=== PATIENT | male | born 1970 | race Caucasian/White ===

== ENCOUNTER 2019-01-29 12:46 | Inpatient (IN) | payer OTHER ==
[~2019-01-29 12:46] MED LIST: ETOMIDATE 20 MG INJ; SUCCINYLCHOLINE CHLORIDE 100 MG/5 ML SYG IV
[2019-01-29] MEDS: LIDOCAINE 1% (MPF) 5 ML VIAL SC (13:00)
[2019-01-29] MEDS: SOD CHLORIDE 0.9% 2,000 ML IV (13:29)
[2019-01-29 13:42] LABS: AADO2 Arterial 51.1 mmHg (7.0-24.0); Arterial Base Excess -19.1 mmol/L (-3.0-3); Arterial Blood Gas Oxygen Sat 98.2 mmHG (95.0-98.0); Arterial COHb 0.4 % (0.0-3.0); Arterial Fraction of Oxyhgb 97.5 % (93.0-99.0); Arterial HCO3 6.7 mmol/L (22.0-26.0); Arterial MetHb 0.3 % (0.0-1.5); Arterial pCO2 17.7 mmhg (35-45); MODE NASAL CANNULA; Site Right Brachial
[2019-01-29 13:49] LABS: ABNORMAL IP MESSAGE 1; HEMOGLOBIN 13.1 g/dl (14.0-18.0); MEAN CORPUSCULAR HEMOGLOBIN 24.8 pg (29.0-33.0); MEAN CORPUSCULAR HGB CONC 34.5 g/dl (32.0-37.0); PLATELET COUNT 289 10^3/UL (140-415); POSITIVE DIFF @See below; RED BLOOD COUNT 5.28 10^6/ul (4.70-6.10); RED CELL DISTRIBUTION WIDTH 13.3 % (11.5-14.5)
[2019-01-29 13:55] LABS: ADD MAN DIFF? YES; PATH REVIEW? YES
[2019-01-29 14:11] LABS: ALANINE AMINOTRANSFERASE 34 IU/L (13-69); ALBUMIN 3.5 g/dl (3.3-4.9); ALBUMIN/GLOBULIN RATIO 0.85; ALKALINE PHOSPHATASE 190 IU/L (42-121); ANION GAP 24 (5-13); ASPARTATE AMINO TRANSFERASE 43 IU/L (15-46); BILIRUBIN,INDIRECT 0.3 mg/dl (0-1.1); BILIRUBIN,TOTAL 0.3 mg/dl (0.2-1.3); BLOOD UREA NITROGEN 34 mg/dl (7-20); CALCIUM 10.3 mg/dl (8.4-10.2); CHLORIDE 89 mmol/L (97-110); CREATININE 1.48 mg/dl (0.61-1.24); Estimated GFR 50 mL/min (>60); PHOSPHORUS 2.7 mg/dl (2.5-4.9); POTASSIUM 3.9 mmol/L (3.5-5.1); SODIUM 121 mmol/L (135-144); TOTAL PROTEIN 7.6 g/dl (6.1-8.1)
[2019-01-29 14:14] LABS: CARBON DIOXIDE 8 mmol/L (21-31); GLUCOSE 514 mg/dl (70-220)
[2019-01-29 14:20] LABS: BAND NEUTROPHILS #M 13.7 10^3/ul (0.0-0.6); BAND NEUTROPHILS % (M) 49 % (0-4); BURR CELLS 1+ (0-0); METAMYELOCYTES #M 0.2 10^3/ul (0.0-0.0); METAMYELOCYTES %M 1 % (0-0); MONOCYTE #M 1.6 10^3/ul (0.3-0.9); MONOCYTES % (M) 6 % (0-11); MYELOCYTES #M 0.8 10^3/ul (0.0-0.0); MYELOCYTES % (M) 3 % (0-0); PLATELET ESTIMATE NORMAL; POIKILOCYTOSIS 2+ (0-0); PROMYELOCYTES #M 0.8 10^3/ul (0-0); PROMYELOCYTES % (M) 3 % (0-0); REACTIVE LYMPHOCYTES #M 0.2 10^3/ul (0.0-0.0); REACTIVE LYMPHOCYTES% (M) 1 % (0-0); SEG NEUT #M 14.2 10^3/ul (1.6-7.5); SEGMENTED NEUTROPHILS (M) % 37 % (39-77); SMUDGE%M 1 % (0-0)
[2019-01-29] MEDS ORDERED: SOD CHLORIDE 0.9% 1,000 ML IV ×2 (14:59→19:27)
[2019-01-29] MEDS ORDERED: DEXTROSE 10%/0.45% NACL 1,000 ML IV ×2 (14:59→19:27)
[2019-01-29] MEDS ORDERED: D10/0.45% NACL + KCL 30 MEQ 1,000 ML IV ×2 (14:59→19:27)
[2019-01-29] MEDS ORDERED: NS + KCL 40 MEQ 1,000 ML IV ×2 (14:59→19:27)
[2019-01-29] MEDS ORDERED: DEXTROSE 50% 50 ML SYRINGE IV ×4 (15:00→19:30)
[2019-01-29] MEDS: SODIUM CHLORIDE 0.9% 1L BAG IV* (15:06)
[2019-01-29] MEDS ORDERED: morphine 4 MG/ML VIAL (15:10)
[2019-01-29] MEDS: CEFEPIME 2GM/50 ML (PMX) 50 ML IVPB (15:12)
[2019-01-29] MEDS: LACTATED RINGER'S 640 ML IV (15:12)
[2019-01-29] MEDS: morphine 4 MG/ML VIAL IV (15:14)
[2019-01-29] MEDS: VANCOMYCIN 1 GM (PMX) 250 ML IVPB (16:03)
[2019-01-29] MEDS: INSULIN REGULAR, HUMAN 100 UNIT in SOD CHLORIDE 0.9% 100 ML IV (16:08)
[2019-01-29] MEDS: NS + KCL 30 MEQ 1,000 ML IV ×2 (16:10→23:30)
[2019-01-29 16:27] LABS: ADD UMIC YES; UR ASCORBIC ACID NEGATIVE (NEGATIVE); UR BILIRUBIN (Dip) NEGATIVE (NEGATIVE); UR BLOOD (Dip) 3+ mg/dL (NEGATIVE); UR CLARITY SLIGHTLY CLOUDY (CLEAR); UR COLOR YELLOW (YELLOW); UR GLUCOSE (Dip) 3+ mg/dL (NEGATIVE); UR KETONES (Dip) 1+ mg/dL (NEGATIVE); UR LEUKOCYTE ESTERASE (Dip) NEGATIVE Leu/ul (NEGATIVE); UR NITRITE (Dip) NEGATIVE (NEGATIVE); UR RBC 0 /HPF (0-5); UR SPECIFIC GRAVITY (Dip) 1.011 (1.003-1.030); UR TOTAL PROTEIN (Dip) 1+ mg/dl (NEGATIVE); UR UROBILINOGEN (Dip) NEGATIVE (NEGATIVE); UR WBC 7 /HPF (0-5)
[2019-01-29] MEDS: D10/0.45% NACL + KCL 40 MEQ 1,000 ML IV (17:10)
[2019-01-29] MEDS ORDERED: ONDANSETRON 4 MG INJ IV ×2 (18:30→20:00)
[2019-01-29] MEDS ORDERED: ACETAMINOPHEN 325 MG TAB PO (18:30)
[2019-01-29] MEDS ORDERED: D10/0.45% NACL + KCL 40 MEQ 1,000 ML IV (19:27)
[2019-01-29] MEDS ORDERED: NS + KCL 30 MEQ 1,000 ML IV (19:27)
[2019-01-29] MEDS ORDERED: INSULIN REGULAR, HUMAN 100 UNIT in SOD CHLORIDE 0.9% 100 ML IV (19:30)
[2019-01-29] MEDS ORDERED: VANCOMYCIN IV PER PHARMACY XX (19:30)
[2019-01-29] MEDS: SOD CHLORIDE 0.9% 1,000 ML IV ×4 (19:38→23:30)
[2019-01-29] MEDS ORDERED: morphine 4 MG/ML VIAL IV (20:00)
[2019-01-29] MEDS: NPH, HUMAN INSULIN ISOPHANE 3ML VIAL SC (20:45)
[2019-01-29] MEDS: INSULIN ASPART [NOVOLOG] 3 ML PEN SC ×2 (20:45→23:30)
[2019-01-29 21:14] LABS: LACTIC ACID 2.5 mmol/L (0.5-2.0)
[2019-01-29] MEDS: ACCU-CHEK XX (21:15)
[2019-01-29 21:33] LABS: ANION GAP 7 (5-13); Estimated GFR > 60 mL/min (>60)
[2019-01-29 21:35] LABS: BLOOD UREA NITROGEN 25 mg/dl (7-20); CALCIUM 8.1 mg/dl (8.4-10.2); CARBON DIOXIDE 13 mmol/L (21-31); CHLORIDE 109 mmol/L (97-110); CREATININE 0.66 mg/dl (0.61-1.24); GLUCOSE 283 mg/dl (70-220); MAGNESIUM 1.4 mg/dl (1.7-2.5); PHOSPHORUS 1.1 mg/dl (2.5-4.9); POTASSIUM 5.9 mmol/L (3.5-5.1); SODIUM 129 mmol/L (135-144)
[2019-01-29 21:55] LABS: ACETONE NEGATIVE (NEGATIVE)
[2019-01-29 22:24] LABS: ANION GAP 8 (5-13); BLOOD UREA NITROGEN 27 mg/dl (7-20); CALCIUM 9.6 mg/dl (8.4-10.2); CARBON DIOXIDE 14 mmol/L (21-31); CHLORIDE 106 mmol/L (97-110); CREATININE 0.74 mg/dl (0.61-1.24); Estimated GFR > 60 mL/min (>60); GLUCOSE 244 mg/dl (70-220); MAGNESIUM 1.7 mg/dl (1.7-2.5); POTASSIUM 3.2 mmol/L (3.5-5.1); SODIUM 128 mmol/L (135-144)
[2019-01-29] MEDS: MAGNESIUM SULFATE 2 GM/50 ML 50 ML IVPB (23:13)
[2019-01-29] MEDS: MAGNESIUM SULFATE 1 GM/D5W 100 ML IVPB (23:14)
[2019-01-29] MEDS: PIPER-TAZO 3.375 GM IV (PMX) 100 ML IVPB (23:15)
[2019-01-30] MEDS ORDERED: PROPOFOL 100 ML IV
[2019-01-30] MEDS: PROPOFOL 100 ML IV ×4 (00:01→20:57)
[2019-01-30] MEDS ORDERED: DEXTROSE 50% 50 ML SYRINGE IV ×2 (00:30)
[2019-01-30 00:51] LABS: AADO2 Arterial 100.2 mmHg (7.0-24.0); AADO2 Arterial 190.5 mmHg (7.0-24.0); AADO2 Venous 112.5 mmHg; Allen Test ACCEPTAB; Arterial Base Excess -11.7 mmol/L (-3.0-3); Arterial Base Excess -13.7 mmol/L (-3.0-3); Arterial Blood Gas Oxygen Sat 96.4 mmHG (95.0-98.0); Arterial Blood Gas Oxygen Sat 99.6 mmHG (95.0-98.0); Arterial COHb 0.3 % (0.0-3.0); Arterial Fraction of Oxyhgb 95.7 % (93.0-99.0); Arterial Fraction of Oxyhgb 98.9 % (93.0-99.0); Arterial HCO3 13.7 mmol/L (22.0-26.0); Arterial HCO3 14.2 mmol/L (22.0-26.0); Arterial MetHb 0.4 % (0.0-1.5); Arterial pCO2 32.1 mmhg (35-45); MODE NASAL CANNULA; MODE VENT - AC; MetHgb Venous 0.4 %; Sample Type Blood venous; Site OTHER; Site Right Radial; Venous COHb 0.1 %; Venous Fraction OxyHgb 74.6 %; Venous Total Hemglobin 12.9 g/dl
[2019-01-30 01:18] LABS: LACTIC ACID 2.1 mmol/L (0.5-2.0)
[2019-01-30 01:19] LABS: TROPONIN-I < 0.012 ng/ml (0.000-0.120)
[2019-01-30] MEDS: ACCU-CHEK XX ×7 (01:29→06:32)
[2019-01-30] MEDS: INSULIN HUMAN REGULAR 100 UNIT in SOD CHLORIDE 0.9% 99 ML IV (01:53)
[2019-01-30] MEDS: SOD CHLORIDE 0.9% 1,000 ML IV ×4 (02:09→16:50)
[2019-01-30] MEDS: SOD CHLORIDE 0.9% 100 ML (02:29)
[2019-01-30] MEDS: IOHEXOL 300MG/ML 150 ML BTL (02:29)
[2019-01-30] MEDS: PIPER-TAZO 3.375 GM IV (PMX) 100 ML IVPB ×3 (03:23→19:32)
[2019-01-30] MEDS: INSULIN ASPART [NOVOLOG] 3 ML PEN SC ×6 (03:30→23:51)
[2019-01-30 03:31] LABS: LACTIC ACID 2.2 mmol/L (0.5-2.0)
[2019-01-30] MEDS: NORepinephrine 8MG/250 ML (PMX 250 ML IV ×2 (03:36→22:27)
[2019-01-30] MEDS: VANCOMYCIN 1 GM 250 ML IVPB ×2 (04:10→16:50)
[2019-01-30] MEDS: NPH, HUMAN INSULIN ISOPHANE 3ML VIAL SC ×2 (05:17→17:18)
[2019-01-30 05:24] LABS: ABNORMAL IP MESSAGE 1; HEMATOCRIT 30.3 % (42.0-52.0); HEMOGLOBIN 10.5 g/dl (14.0-18.0); MEAN CORPUSCULAR HEMOGLOBIN 24.9 pg (29.0-33.0); MEAN CORPUSCULAR HGB CONC 34.7 g/dl (32.0-37.0); MEAN PLATELET VOLUME 10.5 fl (7.4-10.4); PLATELET COUNT 189 10^3/UL (140-415); POSITIVE DIFF @See below; RED BLOOD COUNT 4.21 10^6/ul (4.70-6.10); RED CELL DISTRIBUTION WIDTH 13.9 % (11.5-14.5)
[2019-01-30 05:24] LABS: WHITE BLOOD COUNT 16.2 10^3/ul (4.8-10.8)
[2019-01-30 05:29] LABS: ADD MAN DIFF? YES
[2019-01-30] MEDS: ACETAMINOPHEN 325 MG TAB PO (05:34)
[2019-01-30 05:51] LABS: ALANINE AMINOTRANSFERASE 37 IU/L (13-69); ALBUMIN 2.1 g/dl (3.3-4.9); ALBUMIN/GLOBULIN RATIO 0.67; ALKALINE PHOSPHATASE 130 IU/L (42-121); ANION GAP 8 (5-13); ASPARTATE AMINO TRANSFERASE 58 IU/L (15-46); BILIRUBIN,INDIRECT 0.2 mg/dl (0-1.1); BILIRUBIN,TOTAL 0.2 mg/dl (0.2-1.3); BLOOD UREA NITROGEN 22 mg/dl (7-20); CALCIUM 9.7 mg/dl (8.4-10.2); CARBON DIOXIDE 16 mmol/L (21-31); CHLORIDE 111 mmol/L (97-110); CREATININE 0.76 mg/dl (0.61-1.24); Estimated GFR > 60 mL/min (>60); GLUCOSE 162 mg/dl (70-220); MAGNESIUM 1.7 mg/dl (1.7-2.5); PHOSPHORUS 0.5 mg/dl (2.5-4.9); POTASSIUM 3.1 mmol/L (3.5-5.1); SODIUM 135 mmol/L (135-144); TOTAL PROTEIN 5.2 g/dl (6.1-8.1)
[2019-01-30 05:59] LABS: TROPONIN-I 0.017 ng/ml (0.000-0.120)
[2019-01-30] MEDS ORDERED: LEVETIRACETAM 1000 MG (PMX) 100 ML IVPB (07:03)
[2019-01-30] MEDS ORDERED: LORAZEPAM 2 MG INJ IV (07:30)
[2019-01-30 09:02] LABS: AADO2 Arterial 122.4 mmHg (7.0-24.0); Allen Test ACCEPTAB; Arterial Base Excess -9.8 mmol/L (-3.0-3); Arterial Blood Gas Oxygen Sat 98.9 mmHG (95.0-98.0); Arterial COHb 0.3 % (0.0-3.0); Arterial Fraction of Oxyhgb 98.3 % (93.0-99.0); Arterial HCO3 13.3 mmol/L (22.0-26.0); Arterial MetHb 0.3 % (0.0-1.5); Arterial pCO2 22.7 mmhg (35-45); MODE VENT - AC; Site Right Radial
[2019-01-30 10:09] LABS: BAND NEUTROPHILS #M 7.7 10^3/ul (0.0-0.6); BAND NEUTROPHILS % (M) 48 % (0-4); BURR CELLS 2+ (0-0); LYMPHOCYTES #M 0.6 10^3/ul (0.8-2.9); LYMPHOCYTES % (M) 4 % (15-51); METAMYELOCYTES #M 1.6 10^3/ul (0.0-0.0); METAMYELOCYTES %M 10 % (0-0); MONOCYTE #M 2.1 10^3/ul (0.3-0.9); MONOCYTES % (M) 13 % (0-11); MYELOCYTES #M 0.1 10^3/ul (0.0-0.0); MYELOCYTES % (M) 1 % (0-0); PLATELET ESTIMATE NORMAL; PLATELET MORPHOLOGY COMMENT @See below; POIKILOCYTOSIS 2+ (0-0); SEG NEUT #M 5.3 10^3/ul (1.6-7.5); SEGMENTED NEUTROPHILS (M) % 25 % (39-77); SMUDGE%M 33 % (0-0); TOXIC GRANULATION 1+ (0-0)
[2019-01-30] MEDS: ACETAMINOPHEN 650MG/20.3ML CUP NGT (10:13)
[2019-01-30] MEDS: POTASSIUM CHLORIDE 50 ML IVPB ×3 (10:14→13:48)
[2019-01-30 11:09] LABS: AMPHETAMINE/METHAMPHETAMINE Negative (NEGATIVE); BARBITURATES Negative (NEGATIVE); BENZODIAZEPINES Negative (NEGATIVE); CANNABINOIDS Negative (NEGATIVE); COCAINE Negative (NEGATIVE)
[2019-01-30 11:14] LABS: OPIATES Positive (NEGATIVE)
[2019-01-30] MEDS: FAMOTIDINE 20 MG INJ IV ×2 (13:48→20:56)
[2019-01-30] MEDS: DAKINS 0.0125%(1/40) 473 ML SOLUTION TP (22:20)
[2019-01-30] MEDS: COLLAGENASE 5 GM (UD JAR) TOP (22:20)
[2019-01-31] MEDS: SOD CHLORIDE 0.9% 1,000 ML IV ×4 (00:47→20:36)
[2019-01-31 03:23] LABS: ADD MAN DIFF? NO
[2019-01-31 03:25] LABS: ABNORMAL IP MESSAGE 1; BASOPHIL # 0.1 10^3/ul (0.0-0.1); BASOPHILS % 0.6 % (0.0-2.0); EOSINOPHILS % 0.1 % (0.0-7.0); HEMATOCRIT 30.6 % (42.0-52.0); HEMOGLOBIN 10.8 g/dl (14.0-18.0); LYMPHOCYTES # 0.9 10^3/ul (0.8-2.9); MEAN CORPUSCULAR HEMOGLOBIN 24.9 pg (29.0-33.0); MEAN CORPUSCULAR HGB CONC 35.3 g/dl (32.0-37.0); MEAN CORPUSCULAR VOLUME 70.7 fl (82.0-101.0); MEAN PLATELET VOLUME 10.5 fl (7.4-10.4); MONOCYTE # 1.7 10^3/ul (0.3-0.9); NEUTROPHIL # 15.7 10^3/ul (1.6-7.5); NEUTROPHILS % 83.4 % (39.0-77.0); PLATELET COUNT 183 10^3/UL (140-415); POSITIVE DIFF @See below; RED BLOOD COUNT 4.33 10^6/ul (4.70-6.10); RED CELL DISTRIBUTION WIDTH 14.4 % (11.5-14.5)
[2019-01-31 03:25] LABS: WHITE BLOOD COUNT 18.8 10^3/ul (4.8-10.8)
[2019-01-31 03:48] LABS: ANION GAP 10 (5-13); BLOOD UREA NITROGEN 18 mg/dl (7-20); CARBON DIOXIDE 15 mmol/L (21-31); CHLORIDE 125 mmol/L (97-110); CREATININE 0.85 mg/dl (0.61-1.24); Estimated GFR > 60 mL/min (>60); GLUCOSE 306 mg/dl (70-220); SODIUM 150 mmol/L (135-144)
[2019-01-31 03:53] LABS: VANCOMYCIN,TROUGH 16.6 ug/ml (10.0-20.0)
[2019-01-31 03:56] LABS: POTASSIUM 2.1 mmol/L (3.5-5.1)
[2019-01-31] MEDS: INSULIN ASPART [NOVOLOG] 3 ML PEN SC ×6 (04:04→23:54)
[2019-01-31] MEDS: PIPER-TAZO 3.375 GM IV (PMX) 100 ML IVPB ×3 (04:05→19:05)
[2019-01-31] MEDS: PROPOFOL 100 ML IV ×4 (04:11→20:35)
[2019-01-31] MEDS: POTASSIUM CHLORIDE 50 ML IVPB (04:19)
[2019-01-31] MEDS: POTASSIUM CHLORIDE 20 MEQ POWDER FOR ORAL SOLN NGT ×4 (04:49→11:32)
[2019-01-31] MEDS: VANCOMYCIN 1 GM 250 ML IVPB ×2 (04:54→15:34)
[2019-01-31] MEDS: NPH, HUMAN INSULIN ISOPHANE 3ML VIAL SC ×2 (06:09→19:04)
[2019-01-31] MEDS: ACETAMINOPHEN 650MG/20.3ML CUP NGT (08:14)
[2019-01-31] MEDS: COLLAGENASE 5 GM (UD JAR) TOP ×2 (08:14→20:40)
[2019-01-31] MEDS: FAMOTIDINE 20 MG INJ IV ×2 (08:14→20:36)
[2019-01-31] MEDS: DAKINS 0.0125%(1/40) 473 ML SOLUTION TP ×2 (08:15→20:36)
[2019-01-31] MEDS: ENOXAPARIN 40 MG/0.4 ML SYG SC (08:21)
[2019-01-31 08:54] LABS: AADO2 Arterial 73.2 mmHg (7.0-24.0); Allen Test ACCEPTAB; Arterial Base Excess -9.7 mmol/L (-3.0-3); Arterial Blood Gas Oxygen Sat 97.8 mmHG (95.0-98.0); Arterial COHb 0.3 % (0.0-3.0); Arterial HCO3 14.2 mmol/L (22.0-26.0); Arterial MetHb 0.5 % (0.0-1.5); Arterial pCO2 24.9 mmhg (35-45); MODE VENT - AC; Site Right Radial
[2019-01-31] MEDS: IOHEXOL 300MG/ML 150 ML BTL (10:01)
[2019-01-31] MEDS: SOD CHLORIDE 0.9% 100 ML (10:01)
[2019-01-31] MEDS ORDERED: NPH, HUMAN INSULIN ISOPHANE 3ML VIAL SC (17:30)
[2019-02-01] MEDS: PROPOFOL 100 ML IV ×4 (03:22→22:47)
[2019-02-01] MEDS: PIPER-TAZO 3.375 GM IV (PMX) 100 ML IVPB (03:47)
[2019-02-01] MEDS: INSULIN ASPART [NOVOLOG] 3 ML PEN SC ×2 (03:52→08:49)
[2019-02-01] MEDS: VANCOMYCIN 1 GM 250 ML IVPB (04:58)
[2019-02-01 05:26] LABS: ADD MAN DIFF? NO
[2019-02-01 05:31] LABS: WHITE BLOOD COUNT 17.4 10^3/ul (4.8-10.8)
[2019-02-01 05:31] LABS: ABNORMAL IP MESSAGE 1; BASOPHILS % 0.2 % (0.0-2.0); EOSINOPHILS % 0.2 % (0.0-7.0); HEMATOCRIT 26.4 % (42.0-52.0); HEMOGLOBIN 9.2 g/dl (14.0-18.0); LYMPHOCYTES # 2.1 10^3/ul (0.8-2.9); MEAN CORPUSCULAR HEMOGLOBIN 24.8 pg (29.0-33.0); MEAN CORPUSCULAR HGB CONC 34.8 g/dl (32.0-37.0); MEAN CORPUSCULAR VOLUME 71.2 fl (82.0-101.0); MEAN PLATELET VOLUME 11.4 fl (7.4-10.4); MONOCYTE # 1.6 10^3/ul (0.3-0.9); MONOCYTES % 9.2 % (0.0-11.0); NEUTROPHIL # 13.1 10^3/ul (1.6-7.5); NEUTROPHILS % 75.5 % (39.0-77.0); PLATELET COUNT 203 10^3/UL (140-415); POSITIVE DIFF @See below; RED BLOOD COUNT 3.71 10^6/ul (4.70-6.10); RED CELL DISTRIBUTION WIDTH 14.9 % (11.5-14.5)
[2019-02-01 06:08] LABS: ANION GAP 6 (5-13); BLOOD UREA NITROGEN 24 mg/dl (7-20); CALCIUM 9.6 mg/dl (8.4-10.2); CARBON DIOXIDE 18 mmol/L (21-31); CHLORIDE 129 mmol/L (97-110); CREATININE 0.79 mg/dl (0.61-1.24); Estimated GFR > 60 mL/min (>60); GLUCOSE 289 mg/dl (70-220); POTASSIUM 3.7 mmol/L (3.5-5.1); SODIUM 153 mmol/L (135-144)
[2019-02-01 07:35] LABS: ANISOCYTOSIS 1+ (0-0); BAND NEUTROPHILS #M 8.8 10^3/ul (0.0-0.6); BAND NEUTROPHILS % (M) 51 % (0-4); BURR CELLS 2+ (0-0); LYMPHOCYTES #M 0.8 10^3/ul (0.8-2.9); LYMPHOCYTES % (M) 5 % (15-51); METAMYELOCYTES #M 0.1 10^3/ul (0.0-0.0); METAMYELOCYTES %M 1 % (0-0); MICROCYTOSIS 1+ (0-0); MONOCYTES % (M) 12 % (0-11); MYELOCYTES #M 0.1 10^3/ul (0.0-0.0); MYELOCYTES % (M) 1 % (0-0); PLATELET ESTIMATE NORMAL; POIKILOCYTOSIS 2+ (0-0); PROMYELOCYTES #M 0.1 10^3/ul (0-0); PROMYELOCYTES % (M) 1 % (0-0); SEG NEUT #M 6.6 10^3/ul (1.6-7.5); SEGMENTED NEUTROPHILS (M) % 29 % (39-77); SMUDGE%M 8 % (0-0)
[2019-02-01 07:38] LABS: TOXIC GRANULATION 1+ (0-0)
[2019-02-01] MEDS: FAMOTIDINE 20 MG INJ IV ×2 (08:41→21:00)
[2019-02-01] MEDS: ENOXAPARIN 40 MG/0.4 ML SYG SC (08:46)
[2019-02-01] MEDS: NPH, HUMAN INSULIN ISOPHANE 3ML VIAL SC (08:54)
[2019-02-01] MEDS: SOD CHLORIDE 0.9% 1,000 ML IV ×2 (09:24→22:54)
[2019-02-01] MEDS: COLLAGENASE 5 GM (UD JAR) TOP ×2 (10:11→21:02)
[2019-02-01] MEDS: FENTAnyl (DRIP) 1000 mcg/100mL 100 ML IV ×2 (10:32→21:17)
[2019-02-01] MEDS: CEFTRIAXONE 2 GM/50 ML (PMX) 50 ML IVPB (11:29)
[2019-02-01] MEDS: DAKINS 0.0125%(1/40) 473 ML SOLUTION TP ×2 (11:29→21:02)
[2019-02-01] MEDS: INSULIN HUMAN REGULAR 100 UNIT in SOD CHLORIDE 0.9% 99 ML IV (11:35)
[2019-02-01] MEDS: ACCU-CHEK XX ×13 (11:39→23:00)
[2019-02-01] MEDS ORDERED: PHENYLephrine 20MG IN 250 ML 250 ML (11:58)
[2019-02-01] MEDS ORDERED: PHENYLephrine 20MG IN 250 ML 250 ML IV (12:00)
[2019-02-01] MEDS ORDERED: MIDAZOLAM 1 MG/ML 2 ML INJ IV (12:00)
[2019-02-01] MEDS: MIDAZOLAM 1 MG/ML 2 ML INJ IV (12:07)
[2019-02-01] MEDS: ACETAMINOPHEN 650MG/20.3ML CUP NGT (21:30)
[2019-02-02] MEDS: ACCU-CHEK XX ×24 (01:00→23:00)
[2019-02-02] MEDS: PROPOFOL 100 ML IV ×3 (03:24→16:35)
[2019-02-02 05:15] LABS: HEMATOCRIT 24.7 % (42.0-52.0); HEMOGLOBIN 8.7 g/dl (14.0-18.0); MEAN CORPUSCULAR HEMOGLOBIN 24.7 pg (29.0-33.0); MEAN CORPUSCULAR HGB CONC 35.2 g/dl (32.0-37.0); MEAN CORPUSCULAR VOLUME 70.2 fl (82.0-101.0); MEAN PLATELET VOLUME 10.8 fl (7.4-10.4); PLATELET COUNT 223 10^3/UL (140-415); POSITIVE DIFF @See below; RED BLOOD COUNT 3.52 10^6/ul (4.70-6.10); RED CELL DISTRIBUTION WIDTH 14.9 % (11.5-14.5)
[2019-02-02 05:15] LABS: WHITE BLOOD COUNT 12.2 10^3/ul (4.8-10.8)
[2019-02-02 05:21] LABS: ADD MAN DIFF? YES
[2019-02-02 06:00] LABS: ANION GAP 4 (5-13); BLOOD UREA NITROGEN 23 mg/dl (7-20); CALCIUM 8.7 mg/dl (8.4-10.2); CARBON DIOXIDE 23 mmol/L (21-31); CHLORIDE 130 mmol/L (97-110); CREATININE 0.71 mg/dl (0.61-1.24); Estimated GFR > 60 mL/min (>60); GLUCOSE 105 mg/dl (70-220); SODIUM 157 mmol/L (135-144)
[2019-02-02 06:10] LABS: POTASSIUM 2.8 mmol/L (3.5-5.1)
[2019-02-02] MEDS: FENTAnyl (DRIP) 1000 mcg/100mL 100 ML IV ×2 (07:26→20:13)
[2019-02-02] MEDS: DAKINS 0.0125%(1/40) 473 ML SOLUTION TP ×2 (08:56→21:24)
[2019-02-02] MEDS: FAMOTIDINE 20 MG INJ IV ×2 (08:56→21:17)
[2019-02-02] MEDS: COLLAGENASE 5 GM (UD JAR) TOP ×2 (08:56→21:17)
[2019-02-02] MEDS: POTASSIUM CHLORIDE (SR) 20 MEQ TAB PO ×4 (08:57→16:10)
[2019-02-02] MEDS: ENOXAPARIN 40 MG/0.4 ML SYG SC (08:59)
[2019-02-02] MEDS ORDERED: DEXMEDETOMIDINE IN DEXTROSE 5% 50 ML IV (10:00)
[2019-02-02] MEDS: DEXMEDETOMIDINE IN DEXTROSE 5% 50 ML IV ×4 (10:26→23:32)
[2019-02-02 10:36] LABS: ANISOCYTOSIS 1+ (0-0); BAND NEUTROPHILS #M 5.9 10^3/ul (0.0-0.6); BAND NEUTROPHILS % (M) 49 % (0-4); BURR CELLS 1+ (0-0); EOSINOPHILS % (M) 2 % (0-7); GIANT THROMBO% (M) 1 % (0-0); LYMPHOCYTES #M 1.4 10^3/ul (0.8-2.9); LYMPHOCYTES % (M) 12 % (15-51); MONOCYTE #M 0.7 10^3/ul (0.3-0.9); MONOCYTES % (M) 6 % (0-11); PLATELET ESTIMATE NORMAL; POIKILOCYTOSIS 1+ (0-0); REACTIVE LYMPHOCYTES #M 0.2 10^3/ul (0.0-0.0); REACTIVE LYMPHOCYTES% (M) 2 % (0-0); SEG NEUT #M 4.3 10^3/ul (1.6-7.5); SEGMENTED NEUTROPHILS (M) % 29 % (39-77); SMUDGE%M 15 % (0-0)
[2019-02-02] MEDS: CEFTRIAXONE 2 GM/50 ML (PMX) 50 ML IVPB (10:46)
[2019-02-02] MEDS ORDERED: POTASSIUM CHLORIDE 50 ML IVPB (11:30)
[2019-02-02 12:35] LABS: POTASSIUM 2.4 mmol/L (3.5-5.1)
[2019-02-02] MEDS: POTASSIUM CHLORIDE 40 MEQ in DEXTROSE 5% 1,000 ML IV ×2 (12:40→22:46)
[2019-02-02] MEDS ORDERED: POTASSIUM CHLORIDE 0 ML IVPB (13:26)
[2019-02-02] MEDS: POTASSIUM CHLORIDE 50 ML IVPB ×2 (13:35→16:06)
[2019-02-02] MEDS: MUPIROCIN 2% 22 GM OINT TOP ×2 (21:44→21:54)
[2019-02-02] MEDS: INSULIN HUMAN REGULAR 100 UNIT in SOD CHLORIDE 0.9% 99 ML IV (21:55)
[2019-02-02] MEDS: ACETAMINOPHEN 650MG/20.3ML CUP NGT (21:56)
[2019-02-03] MEDS: ACCU-CHEK XX ×13 (01:00→12:09)
[2019-02-03] MEDS: PROPOFOL 100 ML IV ×2 (02:22→07:19)
[2019-02-03] MEDS: DEXMEDETOMIDINE IN DEXTROSE 5% 50 ML IV ×4 (03:06→13:19)
[2019-02-03 05:02] LABS: AADO2 Arterial 39.7 mmHg (7.0-24.0); Allen Test ACCEPTAB; Arterial Base Excess -1.8 mmol/L (-3.0-3); Arterial Blood Gas Oxygen Sat 98.5 mmHG (95.0-98.0); Arterial COHb 0.3 % (0.0-3.0); Arterial Fraction of Oxyhgb 97.8 % (93.0-99.0); Arterial HCO3 19.7 mmol/L (22.0-26.0); Arterial MetHb 0.4 % (0.0-1.5); Arterial pCO2 21.7 mmhg (35-45); MODE VENT - AC; Site Right Radial
[2019-02-03 06:06] LABS: HEMATOCRIT 23.5 % (42.0-52.0); MEAN CORPUSCULAR HEMOGLOBIN 24.8 pg (29.0-33.0); MEAN CORPUSCULAR VOLUME 72.8 fl (82.0-101.0); MEAN PLATELET VOLUME 11.6 fl (7.4-10.4); NUCLEATED RED BLOOD CELLS% 0.3 /100WBC (0.0-0.0); PLATELET COUNT 208 10^3/UL (140-415); POSITIVE DIFF @See below; RED BLOOD COUNT 3.23 10^6/ul (4.70-6.10); RED CELL DISTRIBUTION WIDTH 15.3 % (11.5-14.5)
[2019-02-03 06:06] LABS: WHITE BLOOD COUNT 10.6 10^3/ul (4.8-10.8)
[2019-02-03 06:23] LABS: ADD MAN DIFF? YES
[2019-02-03 06:35] LABS: ANION GAP 2 (5-13); BLOOD UREA NITROGEN 18 mg/dl (7-20); CALCIUM 8.1 mg/dl (8.4-10.2); CARBON DIOXIDE 21 mmol/L (21-31); CHLORIDE 125 mmol/L (97-110); Estimated GFR > 60 mL/min (>60); GLUCOSE 148 mg/dl (70-220); MAGNESIUM 1.8 mg/dl (1.7-2.5); PHOSPHORUS 0.6 mg/dl (2.5-4.9); SODIUM 148 mmol/L (135-144)
[2019-02-03] MEDS: DAKINS 0.0125%(1/40) 473 ML SOLUTION TP ×2 (09:00→20:37)
[2019-02-03 09:15] LABS: ANISOCYTOSIS 1+ (0-0); BAND NEUTROPHILS #M 4.1 10^3/ul (0.0-0.6); BAND NEUTROPHILS % (M) 39 % (0-4); BURR CELLS 1+ (0-0); ERYTHROBLAST% (NRBC) (M) 1 % (0-0); GIANT THROMBO% (M) 1 % (0-0); LYMPHOCYTES #M 1.8 10^3/ul (0.8-2.9); LYMPHOCYTES % (M) 17 % (15-51); METAMYELOCYTES #M 0.2 10^3/ul (0.0-0.0); METAMYELOCYTES %M 2 % (0-0); MICROCYTOSIS 1+ (0-0); MONOCYTE #M 0.4 10^3/ul (0.3-0.9); MONOCYTES % (M) 4 % (0-11); PLATELET ESTIMATE NORMAL; SEG NEUT #M 4.5 10^3/ul (1.6-7.5); SEGMENTED NEUTROPHILS (M) % 38 % (39-77); SMUDGE%M 104 % (0-0); TOXIC GRANULATION 1+ (0-0)
[2019-02-03] MEDS: COLLAGENASE 5 GM (UD JAR) TOP ×2 (09:30→20:36)
[2019-02-03] MEDS: DOCUSATE SODIUM 10 MG/ML (10ML CUP) GTB (09:30)
[2019-02-03] MEDS: ASCORBIC ACID 500 MG TAB NGT (09:31)
[2019-02-03] MEDS: ZINC SULFATE 220 MG CAP NGT (09:31)
[2019-02-03] MEDS: ENOXAPARIN 40 MG/0.4 ML SYG SC (09:38)
[2019-02-03] MEDS: FAMOTIDINE 20 MG INJ IV ×2 (09:38→20:44)
[2019-02-03 10:13] LABS: AADO2 Arterial 81.3 mmHg (7.0-24.0); Allen Test ACCEPTAB; Arterial Base Excess 0.4 mmol/L (-3.0-3); Arterial HCO3 21.3 mmol/L (22.0-26.0); Arterial pCO2 25.7 mmhg (35-45); Blood Gas PS 10; MODE VENT - CPAP; Site Right Radial
[2019-02-03] MEDS: SOD CHLORIDE IVPB (10:53)
[2019-02-03] MEDS: POTASSIUM PHOSPHATE IVPB (10:53)
[2019-02-03] MEDS: CEFTRIAXONE 2 GM/50 ML (PMX) 50 ML IVPB (13:19)
[2019-02-03] MEDS ORDERED: DEXTROSE 50% 50 ML SYRINGE IV ×2 (13:30)
[2019-02-03] MEDS ORDERED: GLUCAGON 1 MG INJ IM (13:30)
[2019-02-03] MEDS ORDERED: GLUCOSE GEL 15 GRAM TUBE BUCCAL (13:30)
[2019-02-03] MEDS ORDERED: GLUCOSE GEL 15 GRAM TUBE PO ×2 (13:30)
[2019-02-03] MEDS: INSULIN GLARGINE [LANTus] (100 UNITS/ML) SYG SC ×2 (14:17→20:23)
[2019-02-03] MEDS: ALBUTEROL/IPRATROPIUM (NEB) 3 ML AMP HHN ×2 (15:10→20:06)
[2019-02-03 15:19] LABS: PHOSPHORUS 2.7 mg/dl (2.5-4.9)
[2019-02-03 15:19] LABS: ANION GAP 6 (5-13); BLOOD UREA NITROGEN 16 mg/dl (7-20); CALCIUM 8.6 mg/dl (8.4-10.2); CARBON DIOXIDE 23 mmol/L (21-31); CHLORIDE 122 mmol/L (97-110); CREATININE 0.71 mg/dl (0.61-1.24); Estimated GFR > 60 mL/min (>60); GLUCOSE 141 mg/dl (70-220); POTASSIUM 3.5 mmol/L (3.5-5.1); SODIUM 151 mmol/L (135-144)
[2019-02-03] MEDS: INSULIN ASPART [NOVOLOG] 3 ML PEN SC (17:35)
[2019-02-03] MEDS ORDERED: INSULIN GLARGINE [LANTus] (100 UNITS/ML) SYG SC (20:00)
[2019-02-03] MEDS: MUPIROCIN 2% 22 GM OINT TOP (20:36)
[2019-02-03] MEDS: ACETAMINOPHEN 650MG/20.3ML CUP NGT (20:45)
[2019-02-04] MEDS: ALBUTEROL/IPRATROPIUM (NEB) 3 ML AMP HHN ×3 (02:06→19:48)
[2019-02-04] MEDS: INSULIN ASPART [NOVOLOG] 3 ML PEN SC ×5 (07:35→18:48)
[2019-02-04] MEDS: DOCUSATE SODIUM 10 MG/ML (10ML CUP) GTB (08:06)
[2019-02-04] MEDS: ZINC SULFATE 220 MG CAP NGT (09:43)
[2019-02-04] MEDS: ASCORBIC ACID 500 MG TAB NGT (09:43)
[2019-02-04] MEDS: COLLAGENASE 5 GM (UD JAR) TOP (09:44)
[2019-02-04] MEDS: MUPIROCIN 2% 22 GM OINT TOP (09:44)
[2019-02-04] MEDS: DAKINS 0.0125%(1/40) 473 ML SOLUTION TP (09:44)
[2019-02-04] MEDS: INSULIN GLARGINE [LANTus] (100 UNITS/ML) SYG SC (09:45)
[2019-02-04] MEDS: ENOXAPARIN 40 MG/0.4 ML SYG SC (09:46)
[2019-02-04] MEDS: FAMOTIDINE 20 MG INJ IV (11:17)
[2019-02-04] MEDS: CEFTRIAXONE 2 GM/50 ML (PMX) 50 ML IVPB (12:28)
[2019-02-05] MEDS: MUPIROCIN 2% 22 GM OINT TOP ×3 (00:16→20:47)
[2019-02-05] MEDS: COLLAGENASE 5 GM (UD JAR) TOP ×3 (00:16→20:47)
[2019-02-05] MEDS: FAMOTIDINE 20 MG INJ IV ×2 (00:16→09:36)
[2019-02-05] MEDS: DAKINS 0.0125%(1/40) 473 ML SOLUTION TP ×3 (00:16→20:47)
[2019-02-05] MEDS: INSULIN GLARGINE [LANTus] (100 UNITS/ML) SYG SC ×3 (00:18→20:00)
[2019-02-05] MEDS: INSULIN ASPART [NOVOLOG] 3 ML PEN SC ×8 (00:18→20:46)
[2019-02-05] MEDS: ALBUTEROL/IPRATROPIUM (NEB) 3 ML AMP HHN ×4 (01:08→19:50)
[2019-02-05] MEDS: ACCU-CHEK XX (03:27)
[2019-02-05] MEDS: ZINC SULFATE 220 MG CAP NGT (09:36)
[2019-02-05] MEDS: DOCUSATE SODIUM 10 MG/ML (10ML CUP) GTB (09:36)
[2019-02-05] MEDS: ASCORBIC ACID 500 MG TAB NGT (09:37)
[2019-02-05] MEDS: ENOXAPARIN 40 MG/0.4 ML SYG SC (09:50)
[2019-02-05] MEDS: CEFTRIAXONE 2 GM/50 ML (PMX) 50 ML IVPB (11:37)
[2019-02-05 12:28] LABS: C-REACTIVE PROTEIN 5.5 mg/dl (0.0-0.9)
[2019-02-05 13:45] LABS: ERYTHROCYTE SEDIMENTATION RATE 102 mm/Hr (0-20)
[2019-02-05] MEDS: FAMOTIDINE 20 MG TAB NGT (20:47)
[2019-02-06] MEDS: ACCU-CHEK XX (00:43)
[2019-02-06] MEDS: ALBUTEROL/IPRATROPIUM (NEB) 3 ML AMP HHN ×4 (01:34→19:54)
[2019-02-06] MEDS: ASCORBIC ACID 500 MG TAB NGT (08:43)
[2019-02-06] MEDS: ZINC SULFATE 220 MG CAP NGT (08:43)
[2019-02-06] MEDS: ENOXAPARIN 40 MG/0.4 ML SYG SC (08:43)
[2019-02-06] MEDS: DOCUSATE SODIUM 10 MG/ML (10ML CUP) GTB (08:43)
[2019-02-06] MEDS: FAMOTIDINE 20 MG TAB NGT ×2 (08:43→21:32)
[2019-02-06] MEDS: COLLAGENASE 5 GM (UD JAR) TOP ×2 (08:44→21:33)
[2019-02-06] MEDS: INSULIN ASPART [NOVOLOG] 3 ML PEN SC ×7 (08:44→21:41)
[2019-02-06] MEDS: MUPIROCIN 2% 22 GM OINT TOP ×2 (08:49→21:33)
[2019-02-06] MEDS: INSULIN GLARGINE [LANTus] (100 UNITS/ML) SYG SC ×2 (08:54→21:40)
[2019-02-06] MEDS: DAKINS 0.0125%(1/40) 473 ML SOLUTION TP ×2 (08:55→21:33)
[2019-02-06] MEDS: CEFTRIAXONE 2 GM/50 ML (PMX) 50 ML IVPB (12:15)
[2019-02-07] MEDS: ALBUTEROL/IPRATROPIUM (NEB) 3 ML AMP HHN ×4 (01:40→19:41)
[2019-02-07] MEDS: ACCU-CHEK XX (03:19)
[2019-02-07] MEDS: COLLAGENASE 5 GM (UD JAR) TOP ×2 (09:00→21:18)
[2019-02-07] MEDS: ZINC SULFATE 220 MG CAP NGT (09:01)
[2019-02-07] MEDS: FAMOTIDINE 20 MG TAB NGT ×2 (09:01→21:19)
[2019-02-07] MEDS: ASCORBIC ACID 500 MG TAB NGT (09:01)
[2019-02-07] MEDS: ENOXAPARIN 40 MG/0.4 ML SYG SC (09:02)
[2019-02-07] MEDS: DOCUSATE SODIUM 10 MG/ML (10ML CUP) GTB (09:02)
[2019-02-07] MEDS: INSULIN ASPART [NOVOLOG] 3 ML PEN SC ×7 (09:03→21:34)
[2019-02-07] MEDS: DAKINS 0.0125%(1/40) 473 ML SOLUTION TP ×2 (09:03→21:18)
[2019-02-07] MEDS: MUPIROCIN 2% 22 GM OINT TOP ×2 (09:03→21:19)
[2019-02-07] MEDS: INSULIN GLARGINE [LANTus] (100 UNITS/ML) SYG SC ×2 (09:58→21:49)
[2019-02-07] MEDS: CEFTRIAXONE 2 GM/50 ML (PMX) 50 ML IVPB (11:53)
[2019-02-07 17:05] LABS: ADD MAN DIFF? NO
[2019-02-07 17:07] LABS: BASOPHILS % 0.3 % (0.0-2.0); EOSINOPHILS # 0.1 10^3/ul (0.0-0.5); EOSINOPHILS % 0.8 % (0.0-7.0); HEMATOCRIT 27.5 % (42.0-52.0); HEMOGLOBIN 8.8 g/dl (14.0-18.0); LYMPHOCYTES # 2.1 10^3/ul (0.8-2.9); LYMPHOCYTES % 19.8 % (15.0-51.0); MEAN CORPUSCULAR HEMOGLOBIN 24.9 pg (29.0-33.0); MEAN CORPUSCULAR VOLUME 77.9 fl (82.0-101.0); MEAN PLATELET VOLUME 10.2 fl (7.4-10.4); MONOCYTE # 0.4 10^3/ul (0.3-0.9); MONOCYTES % 4.2 % (0.0-11.0); NEUTROPHIL # 7.7 10^3/ul (1.6-7.5); NEUTROPHILS % 74.4 % (39.0-77.0); PLATELET COUNT 242 10^3/UL (140-415); RED BLOOD COUNT 3.53 10^6/ul (4.70-6.10); RED CELL DISTRIBUTION WIDTH 16.4 % (11.5-14.5)
[2019-02-07 17:07] LABS: WHITE BLOOD COUNT 10.4 10^3/ul (4.8-10.8)
[2019-02-07 17:34] LABS: ALANINE AMINOTRANSFERASE 25 IU/L (13-69); ALBUMIN 2.5 g/dl (3.3-4.9); ALKALINE PHOSPHATASE 87 IU/L (42-121); ANION GAP 8 (5-13); ASPARTATE AMINO TRANSFERASE 27 IU/L (15-46); BILIRUBIN,INDIRECT 0.3 mg/dl (0-1.1); BILIRUBIN,TOTAL 0.3 mg/dl (0.2-1.3); BLOOD UREA NITROGEN 13 mg/dl (7-20); CALCIUM 7.9 mg/dl (8.4-10.2); CARBON DIOXIDE 24 mmol/L (21-31); CHLORIDE 114 mmol/L (97-110); CREATININE 0.49 mg/dl (0.61-1.24); Estimated GFR > 60 mL/min (>60); GLUCOSE 227 mg/dl (70-220); SODIUM 146 mmol/L (135-144); TOTAL PROTEIN 6.6 g/dl (6.1-8.1)
[2019-02-07 17:40] LABS: POTASSIUM 2.7 mmol/L (3.5-5.1)
[2019-02-07] MEDS: POTASSIUM CHLORIDE (SR) 20 MEQ TAB PO (17:57)
[2019-02-07 18:29] LABS: ERYTHROCYTE SEDIMENTATION RATE 95 mm/Hr (0-20)
[2019-02-08] MEDS: ALBUTEROL/IPRATROPIUM (NEB) 3 ML AMP HHN ×4 (02:00→20:03)
[2019-02-08] MEDS: ACCU-CHEK XX (02:21)
[2019-02-08] MEDS: DOCUSATE SODIUM 10 MG/ML (10ML CUP) GTB (08:55)
[2019-02-08] MEDS: DAKINS 0.0125%(1/40) 473 ML SOLUTION TP ×2 (09:00→20:24)
[2019-02-08] MEDS: COLLAGENASE 5 GM (UD JAR) TOP ×2 (09:00→20:21)
[2019-02-08] MEDS: MUPIROCIN 2% 22 GM OINT TOP ×2 (09:39→20:24)
[2019-02-08] MEDS: ZINC SULFATE 220 MG CAP NGT (09:39)
[2019-02-08] MEDS: ASCORBIC ACID 500 MG TAB NGT (09:39)
[2019-02-08] MEDS: FAMOTIDINE 20 MG TAB NGT ×2 (09:39→20:21)
[2019-02-08] MEDS: ENOXAPARIN 40 MG/0.4 ML SYG SC (09:51)
[2019-02-08] MEDS: INSULIN ASPART [NOVOLOG] 3 ML PEN SC ×7 (09:51→20:21)
[2019-02-08] MEDS: CEFTRIAXONE 2 GM/50 ML (PMX) 50 ML IVPB (12:19)
[2019-02-08] MEDS: INSULIN GLARGINE [LANTus] (100 UNITS/ML) SYG SC (20:33)
== END 2019-02-08 22:30 | DRG 870 ==
LOC: 6WM 02-04 14:09 → E/R 12:46 → ICU 18:29
PROC: 0BH17EZ Insertion of Endotracheal Airway into Trachea, Via Natural or Artificial Opening (ICD-10-PCS; principal; 2019-01-29)
PROC: 5A1955Z Respiratory Ventilation, Greater than 96 Consecutive Hours (ICD-10-PCS; 2019-01-29)
PROC: 02H633Z Insertion of Infusion Device into Right Atrium, Percutaneous Approach (ICD-10-PCS; 2019-01-29)
PROC: B24BZZ4 Ultrasonography of Heart with Aorta, Transesophageal (ICD-10-PCS; 2019-02-01)
DX: A41.9 Sepsis, unspecified organism (principal); J96.01 Acute respiratory failure with hypoxia; R65.21 Severe sepsis with septic shock; J18.9 Pneumonia, unspecified organism; E11.10 Type 2 diabetes mellitus with ketoacidosis without coma; L89.224 Pressure ulcer of left hip, stage 4; I26.90 Septic pulmonary embolism without acute cor pulmonale; N17.9 Acute kidney failure, unspecified; E87.2 Acidosis; E87.1 Hypo-osmolality and hyponatremia; E87.0 Hyperosmolality and hypernatremia; F11.20 Opioid dependence, uncomplicated; D63.8 Anemia in other chronic diseases classified elsewhere; E83.39 Other disorders of phosphorus metabolism; E87.6 Hypokalemia; G89.29 Other chronic pain; L89.210 Pressure ulcer of right hip, unstageable; M72.0 Palmar fascial fibromatosis [Dupuytren]; Z89.212 Acquired absence of left upper limb below elbow; Z79.4 Long term (current) use of insulin
CPT/HCPCS: 31500; 36415; 36569; 36600; 70450; 71045; 71260; 72131; 72148; 74176; 76937; 80048; 80053; 80202; 80307; 81001; 82010; 82803; 82962; 83036; 83605; 83735; 84100; 84132; 84484; 85025; 85651; 86140; 87040-91; 87070; 87081; 87086; 89220; 92526; 92610; 93306; 93312; 93325; 94002; 94003; 94640; 94664; 94770; 96374; 96375; 97110; 97163; 97530; 99285-25